=== PATIENT | male | born 1955 | race Asian ===

== ENCOUNTER 2021-03-15 04:13 | Day surgery (SDC) | payer OTHER ==
[2021-03-11 11:39] VITALS: BMI 31.1
[2021-03-15] MEDS ORDERED: MIDAZOLAM HCL 2 MG/2 ML SINGLE DOSE VIAL ONE (08:57)
[2021-03-15] MEDS ORDERED: KETOROLAC TROMETHAMINE 30 MG/1 ML VIAL ONE (09:05)
[2021-03-15] MEDS ORDERED: DEXAMETHASONE SOD PHOSPHATE 4 MG/1 ML VIAL ONE (09:05)
[2021-03-15 17:36] VITALS: TEMP 98.8
[2021-03-15 17:39] VITALS: BP 120/74; PULSE 71
== END 2021-03-15 09:46 | disposition home or self-care (01) ==
LOC: JASU-SURG 04:13
PROVIDERS: ATTEND Urology
PROC: 0TF4XZZ Fragmentation in Left Kidney Pelvis, External Approach (ICD-10-PCS; principal; 2021-03-15 09:30)
DX: N20.0 Calculus of kidney (principal)

== ENCOUNTER 2021-05-15 15:46 | Inpatient (IN) | payer OTHER ==
[2021-05-15 15:53] VITALS: BMI 31.1
[2021-05-15] MEDS: ALBUTEROL SO4 2.5/IPRATROPIUM 0.5 INH SOL 3 ML VIAL.NEB. NEB SCH ×4 (18:00→19:04)
[2021-05-15] MEDS ORDERED: DEXAMETHASONE SOD PHOSPHATE 20 MG/5 ML VIAL IVPB ONE (18:02)
[2021-05-15] MEDS ORDERED: DEXAMETHASONE SOD PHOSPHATE 10 MG/1 ML VIAL ONE (18:15)
[2021-05-15] MEDS ORDERED: ALBUTEROL SO4 2.5/IPRATROPIUM 0.5 INH SOL 3 ML VIAL.NEB. NEB ONE (18:15)
[2021-05-15 18:20] LABS: BASO % 1.1 % (0-2.0); HEMOGLOBIN 14.2 GM/dL (11.7-16.9); LYMPH % 35.7 % (8-40); MCH 27.6 pg (25.7-33.7); MCHC 33.8 g/dl (32.0-35.9); MEAN CELL VOLUME 81.6 fl (80-96); MEAN PLT VOLUME 8.1 fl (7.5-11.1); MONO % 7.1 % (3.8-10.2); NEUT % 52.1 % (42.8-82.8); PLATELET COUNT 229 10^3/uL (134-434); RBC 5.15 M/mm3 (4.00-5.60); WHITE BLOOD COUNT 8.4 K/mm3 (4.0-10.0)
[2021-05-15 18:39] LABS: ALBUMIN 3.8 g/dl (3.4-5.0); BLOOD UREA NITROGEN 20.9 mg/dL (7-18); CALCIUM 9.3 mg/dL (8.5-10.1)
[2021-05-15 18:42] LABS: CREATININE 1.3 mg/dL (0.55-1.3)
[2021-05-15 18:45] LABS: BILIRUBIN,TOTAL 0.4 mg/dL (0.2-1); TOT PROT 7.8 g/dl (6.4-8.2)
[2021-05-15] MEDS ORDERED: ASPIRIN 81 MG CHEWABLE TABLETS PO ONE (18:58)
[2021-05-15 19:26] LABS: N-TERMINAL BNP 30.5 pg/ml (5-125)
[2021-05-15] MEDS ORDERED: ASPIRIN 81 MG CHEWABLE TABLETS ONE (19:31)
[2021-05-15] MEDS ORDERED: ACETAMINOPHEN 325 MG TABLET (FP) PO PRN (20:54)
[2021-05-15] MEDS ORDERED: ALBUTEROL SO4 2.5/IPRATROPIUM 0.5 INH SOL 3 ML VIAL.NEB. NEB PRN (22:49)
[2021-05-16] MEDS ORDERED: ALBUTEROL SO4 HFA INHALER IH ONE (06:14)
[2021-05-16] MEDS: ALBUTEROL SO4 HFA INHALER IH PRN ×2 (06:14→12:25)
[2021-05-16 08:10] LABS: BASO % 0.2 % (0-2.0); HEMATOCRIT 43.3 % (35.4-49); HEMOGLOBIN 14.4 GM/dL (11.7-16.9); LYMPH % 18.6 % (8-40); MCH 27.1 pg (25.7-33.7); MCHC 33.1 g/dl (32.0-35.9); MEAN CELL VOLUME 81.8 fl (80-96); MEAN PLT VOLUME 8.1 fl (7.5-11.1); MONO % 2.4 % (3.8-10.2); NEUT % 78.8 % (42.8-82.8); PLATELET COUNT 250 10^3/uL (134-434); RDW 13.7 % (11.9-15.9); WHITE BLOOD COUNT 6.7 K/mm3 (4.0-10.0)
[2021-05-16 08:19] LABS: INR 0.97 (0.83-1.09); PROTHROMBIN TIME (PATIENT) 11.1 SEC (9.7-13.0)
[2021-05-16 08:30] LABS: CALCIUM 9.5 mg/dL (8.5-10.1); MAGNESIUM 2.2 mg/dL (1.8-2.4)
[2021-05-16 08:33] LABS: CREATININE 1.3 mg/dL (0.55-1.3); PHOSPHOROUS 2.7 mg/dL (2.5-4.9)
[2021-05-16 08:34] LABS: BILIRUBIN,TOTAL 0.4 mg/dL (0.2-1); TOT PROT 8.4 g/dl (6.4-8.2)
[2021-05-16 09:12] LABS: EPI CELLS 1 /uL (0-25.1); HYALINE CASTS 0 /uL (0-3.1); PH,URINE 5.5 (5.0-8.0); URINE APPEARANCE CLEAR; URINE BACTERIA 3 /uL (0-1359); URINE BILIRUBIN NEGATIVE (NEGATIVE); URINE COLOR YELLOW; URINE GLUCOSE (UA) 1+ (NEGATIVE); URINE KETONE NEGATIVE (NEGATIVE); URINE LEUK ESTERASE NEGATIVE (NEGATIVE); URINE NITRITE NEGATIVE (NEGATIVE); URINE PROTEIN 2+ (NEGATIVE); URINE RBC 4 /uL (0-23.9); URINE UROBILINOGEN 0.2 mg/dL (0.2-1.0); URINE WBC 1 /uL (0-25.8)
[2021-05-16] MEDS ORDERED: methylPREDNISolone NA SUCC 40 MG/1 ML VIAL ONE ×2 (09:17→18:02)
[2021-05-16] MEDS ORDERED: amLODIPine BESYLATE 10 MG TABLET (FP) ONE (09:17)
[2021-05-16] MEDS ORDERED: PANTOPRAZOLE 40 MG TABLET ONE (09:17)
[2021-05-16] MEDS: PANTOPRAZOLE 40 MG TABLET PO SCH (09:36)
[2021-05-16] MEDS: amLODIPine BESYLATE 10 MG TABLET (FP) PO SCH (09:36)
[2021-05-16] MEDS ORDERED: PANTOPRAZOLE 20 MG TABLET PO SCH (10:00)
[2021-05-16] MEDS ORDERED: LOSARTAN POTASSIUM 50 MG TABLET PO SCH (10:00)
[2021-05-16] MEDS ORDERED: amLODIPine BESYLATE 10 MG TABLET (FP) PO SCH (10:00)
[2021-05-16] MEDS ORDERED: methylPREDNISolone NA SUCC 40 MG/1 ML VIAL IVPUSH SCH (10:00)
[2021-05-16] MEDS ORDERED: ENOXAPARIN NA (PORCINE) 80 MG/0.8 ML DISP.SYRIN SQ ONE (10:00)
[2021-05-16] MEDS ORDERED: ENOXAPARIN NA (PORCINE) 40 MG/0.4 ML DISP.SYRIN SQ SCH (10:00)
[2021-05-16] MEDS ORDERED: LACTATED RINGERS SOLUTION 1,000 ML/1,000 ML INFUS.BAG IV SCH (12:30)
[2021-05-16] MEDS: ALBUTEROL SO4 HFA INHALER IH SCH ×2 (13:18→18:14)
[2021-05-16 16:07] LABS: SARS-CoV-2 NAA Not Detected (Not Detected)
[2021-05-16] MEDS: methylPREDNISolone NA SUCC 40 MG/1 ML VIAL IVPUSH SCH (18:13)
[2021-05-16] MEDS: MONTELUKAST NA 10 MG TABLET PO SCH (21:27)
[2021-05-16] MEDS ORDERED: MONTELUKAST NA 5 MG TAB.CHEW PO SCH ×2 (22:00)
[2021-05-17] MEDS: ALBUTEROL SO4 HFA INHALER IH SCH ×4 (00:26→17:17)
[2021-05-17] MEDS: methylPREDNISolone NA SUCC 40 MG/1 ML VIAL IVPUSH SCH ×3 (01:17→17:16)
[2021-05-17] MEDS: ENOXAPARIN NA (PORCINE) 40 MG/0.4 ML DISP.SYRIN SQ SCH (09:28)
[2021-05-17] MEDS: LOSARTAN POTASSIUM 50 MG TABLET PO SCH (09:28)
[2021-05-17] MEDS: PANTOPRAZOLE 40 MG TABLET PO SCH (09:28)
[2021-05-17] MEDS: amLODIPine BESYLATE 10 MG TABLET (FP) PO SCH (09:28)
[2021-05-17] MEDS ORDERED: SODIUM CHLORIDE NASAL SPRAY 44 ML BOTTLE NS PRN (11:51)
[2021-05-17] MEDS: INSULIN SLIDING SCALE (NOVOLOG) 1 VIAL SQ SCH ×2 (17:15→21:45)
[2021-05-17] MEDS: TAMSULOSIN HCL 0.4 MG CAP PO SCH (17:17)
[2021-05-17] MEDS: MONTELUKAST NA 10 MG TABLET PO SCH (21:45)
[2021-05-17] MEDS: ATORVASTATIN CA 10 MG TABLET (FP) PO SCH (21:45)
[2021-05-18] MEDS: ALBUTEROL SO4 HFA INHALER IH SCH ×3 (01:00→11:26)
[2021-05-18] MEDS: methylPREDNISolone NA SUCC 40 MG/1 ML VIAL IVPUSH SCH ×3 (02:37→18:13)
[2021-05-18] MEDS: INSULIN SLIDING SCALE (NOVOLOG) 1 VIAL SQ SCH ×4 (06:01→21:37)
[2021-05-18 07:26] LABS: BASO % 0.1 % (0-2.0); HEMATOCRIT 40.5 % (35.4-49); HEMOGLOBIN 13.3 GM/dL (11.7-16.9); LYMPH % 7.8 % (8-40); MCH 26.8 pg (25.7-33.7); MCHC 32.8 g/dl (32.0-35.9); MEAN CELL VOLUME 81.6 fl (80-96); MEAN PLT VOLUME 8.7 fl (7.5-11.1); MONO % 2.2 % (3.8-10.2); NEUT % 89.9 % (42.8-82.8); PLATELET COUNT 248 10^3/uL (134-434); RBC 4.96 M/mm3 (4.00-5.60); RDW 13.9 % (11.9-15.9); WHITE BLOOD COUNT 13.8 K/mm3 (4.0-10.0)
[2021-05-18 07:42] LABS: BLOOD UREA NITROGEN 25.7 mg/dL (7-18); CALCIUM 8.5 mg/dL (8.5-10.1); MAGNESIUM 2.2 mg/dL (1.8-2.4)
[2021-05-18 07:45] LABS: PHOSPHOROUS 2.5 mg/dL (2.5-4.9)
[2021-05-18 07:46] LABS: CREATININE 1.1 mg/dL (0.55-1.3)
[2021-05-18] MEDS: amLODIPine BESYLATE 10 MG TABLET (FP) PO SCH (09:57)
[2021-05-18] MEDS: LOSARTAN POTASSIUM 50 MG TABLET PO SCH (09:57)
[2021-05-18] MEDS: ENOXAPARIN NA (PORCINE) 40 MG/0.4 ML DISP.SYRIN SQ SCH (09:57)
[2021-05-18] MEDS: TAMSULOSIN HCL 0.4 MG CAP PO SCH (09:57)
[2021-05-18] MEDS: ASPIRIN 81 MG CHEWABLE TABLETS PO SCH (09:58)
[2021-05-18] MEDS: PANTOPRAZOLE 40 MG TABLET PO SCH (09:59)
[2021-05-18] MEDS ORDERED: FENOFIBRATE 54 MG PO SCH (10:00)
[2021-05-18] MEDS: FENOFIBRIC ACID 45 MG CAP PO SCH (10:42)
[2021-05-18] MEDS ORDERED: ALBUTEROL SO4 0.083% IH SOL 2.5 MG/3 ML VIAL.NEB. NEB PRN (13:44)
[2021-05-18] MEDS: FLUTICASONE/UMECLIDIN/VILANTER(200-62.5-25 TRELEGY ELLIPTA) INAHLER IH SCH (18:15)
[2021-05-18] MEDS: MONTELUKAST NA 10 MG TABLET PO SCH (21:37)
[2021-05-18] MEDS: ATORVASTATIN CA 10 MG TABLET (FP) PO SCH (21:37)
[2021-05-18] MEDS ORDERED: BUDESONIDE/FORMETEROL FUMARATE 80/4.5 mcg INHALER IH SCH (22:00)
[2021-05-19] MEDS: methylPREDNISolone NA SUCC 40 MG/1 ML VIAL IVPUSH SCH ×2 (01:35→09:37)
[2021-05-19] MEDS: INSULIN SLIDING SCALE (NOVOLOG) 1 VIAL SQ SCH ×2 (06:05→11:21)
[2021-05-19 07:00] LABS: HEMATOCRIT 40.1 % (35.4-49); HEMOGLOBIN 13.7 GM/dL (11.7-16.9); MCH 27.5 pg (25.7-33.7); MCHC 34.1 g/dl (32.0-35.9); MEAN CELL VOLUME 80.7 fl (80-96); PLATELET COUNT 239 10^3/uL (134-434); RBC 4.97 M/mm3 (4.00-5.60); RDW 13.6 % (11.9-15.9); WHITE BLOOD COUNT 11.3 K/mm3 (4.0-10.0)
[2021-05-19] MEDS ORDERED: GLIMEPIRIDE 4 MG TABLET PO SCH (07:00)
[2021-05-19 07:12] LABS: CALCIUM 8.7 mg/dL (8.5-10.1)
[2021-05-19 07:13] LABS: BLOOD UREA NITROGEN 23.9 mg/dL (7-18); MAGNESIUM 2.3 mg/dL (1.8-2.4)
[2021-05-19 07:16] LABS: CREATININE 1.3 mg/dL (0.55-1.3)
[2021-05-19 07:19] LABS: PHOSPHOROUS 3.1 mg/dL (2.5-4.9)
[2021-05-19 09:01] VITALS: TEMP 98.8
[2021-05-19] MEDS: PANTOPRAZOLE 40 MG TABLET PO SCH (09:37)
[2021-05-19] MEDS: ASPIRIN 81 MG CHEWABLE TABLETS PO SCH ×2 (09:37→09:46)
[2021-05-19] MEDS: LOSARTAN POTASSIUM 50 MG TABLET PO SCH (09:37)
[2021-05-19] MEDS: amLODIPine BESYLATE 10 MG TABLET (FP) PO SCH (09:37)
[2021-05-19] MEDS: ENOXAPARIN NA (PORCINE) 40 MG/0.4 ML DISP.SYRIN SQ SCH (09:37)
[2021-05-19] MEDS: TAMSULOSIN HCL 0.4 MG CAP PO SCH (09:37)
[2021-05-19] MEDS: FENOFIBRIC ACID 45 MG CAP PO SCH (09:37)
[2021-05-19] MEDS: FLUTICASONE/UMECLIDIN/VILANTER(200-62.5-25 TRELEGY ELLIPTA) INAHLER IH SCH (09:38)
[2021-05-19] MEDS ORDERED: metFORMIN HCL 500 MG TABLET (FP) PO SCH (10:00)
[2021-05-19 12:13] LABS: PLATELET ESTIMATE NORMAL
[2021-05-19 14:55] VITALS: BP 137/62; PULSE 104
[2021-05-19] MEDS ORDERED: methylPREDNISolone NA SUCC 40 MG/1 ML VIAL IVPUSH SCH (22:00)
== END 2021-05-19 15:39 | disposition home or self-care (01) | DRG 191 ==
LOC: JER 15:46 → JERBED 18:48 → OBSVTOIN 20:54 → J4W 05-16 19:16
PROVIDERS: ADMIT Internal Medicine; ATTEND Internal Medicine
DX: J44.1 Chronic obstructive pulmonary disease with (acute) exacerbation (principal); J45.901 Unspecified asthma with (acute) exacerbation; I10 Essential (primary) hypertension; E78.5 Hyperlipidemia, unspecified; I45.10 Unspecified right bundle-branch block; E66.9 Obesity, unspecified; Z68.31 Body mass index [BMI] 31.0-31.9, adult; N40.0 Benign prostatic hyperplasia without lower urinary tract symptoms; E11.65 Type 2 diabetes mellitus with hyperglycemia; R07.89 Other chest pain; Z87.891 Personal history of nicotine dependence
CPT/HCPCS: 36415; 71045-TC-FY; 80048; 80053; 80061; 81003; 82962; 83036; 83735; 83880; 84100; 84436; 84443; 84484; 85025; 85379; 85610; 87804; 93005; 93010; 93306-TC; 93970-TC; 94010; 99285-25; C9803-CS; G0378; U0003; U0005

== ENCOUNTER 2021-05-24 04:23 | Day surgery (SDC) | payer OTHER ==
[2021-05-20 09:22] VITALS: BMI 31.1
[2021-05-24] MEDS ORDERED: ONDANSETRON 4 MG/2 ML VIAL ONE ×2 (08:10→10:05)
[2021-05-24] MEDS ORDERED: MIDAZOLAM HCL 2 MG/2 ML SINGLE DOSE VIAL ONE (09:36)
[2021-05-24 13:03] VITALS: BP 128/81; PULSE 68; TEMP 98
== END 2021-05-24 11:10 | disposition home or self-care (01) ==
LOC: JASU-SURG 04:23
PROVIDERS: ATTEND Urology
PROC: 0TF4XZZ Fragmentation in Left Kidney Pelvis, External Approach (ICD-10-PCS; principal; 2021-05-24 09:30)
DX: N20.0 Calculus of kidney (principal)
CPT/HCPCS: 82962

== ENCOUNTER 2021-06-08 11:33 | Inpatient (IN) | payer OTHER ==
[2021-06-08 13:03] LABS: BASO % 0.7 % (0-2.0); EOS % 2.5 % (0-4.5); HEMATOCRIT 39.7 % (35.4-49); HEMOGLOBIN 13.5 GM/dL (11.7-16.9); LYMPH % 24.5 % (8-40); MCH 27.8 pg (25.7-33.7); MEAN CELL VOLUME 81.8 fl (80-96); MEAN PLT VOLUME 8.2 fl (7.5-11.1); MONO % 6.1 % (3.8-10.2); NEUT % 66.2 % (42.8-82.8); PLATELET COUNT 193 10^3/uL (134-434); RBC 4.86 M/mm3 (4.00-5.60); RDW 14.3 % (11.9-15.9); WHITE BLOOD COUNT 9.5 K/mm3 (4.0-10.0)
[2021-06-08] MEDS ORDERED: SODIUM CHLORIDE 0.9% 500 ML INFUS.BAG IV ONE (13:04)
[2021-06-08 13:09] LABS: ACTIVATED PTT 28.4 SECONDS (25.2-36.5)
[2021-06-08 13:21] LABS: INR 0.97 (0.83-1.09); PROTHROMBIN TIME (PATIENT) 11.2 SEC (9.7-13.0)
[2021-06-08 13:24] LABS: ALBUMIN 3.9 g/dl (3.4-5.0); BLOOD UREA NITROGEN 22.4 mg/dL (7-18); CALCIUM 9.3 mg/dL (8.5-10.1); MAGNESIUM 2.1 mg/dL (1.8-2.4)
[2021-06-08 13:27] LABS: CREATININE 1.4 mg/dL (0.55-1.3)
[2021-06-08 13:29] LABS: BILIRUBIN,TOTAL 0.4 mg/dL (0.2-1); TOT PROT 7.3 g/dl (6.4-8.2)
[2021-06-08] MEDS ORDERED: APIXABAN 5 MG TABLET PO ONE (16:17)
[2021-06-08] MEDS ORDERED: APIXABAN 5 MG TABLET ONE (16:22)
[2021-06-08] MEDS: METOPROLOL TARTRATE 50 MG TABLET (FP) PO SCH ×2 (21:01→23:30)
[2021-06-08] MEDS ORDERED: APIXABAN 5 MG TABLET PO SCH (22:00)
[2021-06-09] MEDS ORDERED: SODIUM CHLORIDE 1,000 ML IV SCH (00:30)
[2021-06-09 01:08] VITALS: BMI 32.3
[2021-06-09] MEDS ORDERED: ACETAMINOPHEN 325 MG TABLET (FP) PO PRN (02:26)
[2021-06-09] MEDS: INSULIN SLIDING SCALE (NOVOLOG) 1 VIAL SQ SCH ×2 (07:31→12:08)
[2021-06-09 07:35] LABS: BASO % 0.9 % (0-2.0); HEMATOCRIT 37.7 % (35.4-49); HEMOGLOBIN 12.8 GM/dL (11.7-16.9); LYMPH % 28.4 % (8-40); MCH 27.8 pg (25.7-33.7); MCHC 33.9 g/dl (32.0-35.9); MEAN CELL VOLUME 82.1 fl (80-96); MEAN PLT VOLUME 8.3 fl (7.5-11.1); NEUT % 58.7 % (42.8-82.8); PLATELET COUNT 205 10^3/uL (134-434); RBC 4.59 M/mm3 (4.00-5.60); RDW 14.1 % (11.9-15.9); WHITE BLOOD COUNT 8.7 K/mm3 (4.0-10.0)
[2021-06-09 07:51] LABS: ALBUMIN 3.2 g/dl (3.4-5.0); BLOOD UREA NITROGEN 29.8 mg/dL (7-18); CALCIUM 8.8 mg/dL (8.5-10.1)
[2021-06-09 07:52] LABS: MAGNESIUM 2.1 mg/dL (1.8-2.4)
[2021-06-09 07:54] LABS: CREATININE 1.4 mg/dL (0.55-1.3); PHOSPHOROUS 3.5 mg/dL (2.5-4.9)
[2021-06-09 07:56] LABS: BILIRUBIN,TOTAL 0.4 mg/dL (0.2-1)
[2021-06-09] MEDS: METOPROLOL TARTRATE 50 MG TABLET (FP) PO SCH (09:54)
[2021-06-09] MEDS ORDERED: APIXABAN 5 MG TABLET PO SCH (10:00)
[2021-06-09 13:28] VITALS: BP 104/54; PULSE 80; TEMP 97.3
== END 2021-06-09 18:21 | disposition home or self-care (01) | DRG 176 ==
LOC: JER 11:33 → JERBED 15:06 → J4W 22:57
PROVIDERS: ADMIT Internal Medicine; ATTEND Internal Medicine
DX: I26.99 Other pulmonary embolism without acute cor pulmonale (principal); N17.9 Acute kidney failure, unspecified; E11.9 Type 2 diabetes mellitus without complications; E78.5 Hyperlipidemia, unspecified; I10 Essential (primary) hypertension; J45.909 Unspecified asthma, uncomplicated; I45.10 Unspecified right bundle-branch block; I48.0 Paroxysmal atrial fibrillation
CPT/HCPCS: 36415; 71046-TC-FY; 71275-TC; 78452-TC; 80053; 82962; 83735; 84100; 84484; 85025; 85379; 85610; 85730; 93005; 93010; 93017; 93306-TC; 99285-25; A9502; C1887; C9803-CS; Q9967; U0003; U0005

== ENCOUNTER 2021-10-15 04:13 | Day surgery (SDC) | payer OTHER ==
[2021-08-19 14:07] VITALS: BMI 31.6
[2021-10-15] MEDS ORDERED: LIDOCAINE HCL/PF 1% SDV 5ML VIAL ONE (07:09)
[2021-10-15] MEDS ORDERED: LIDOCAINE HCL 2% (20ML MULTI-DOSE VIAL) ONE (08:21)
[2021-10-15] MEDS ORDERED: LIDOCAINE HCL 1% PRESERVATIVE FREE - 30ML VIAL IJ ONE ×2 (08:44)
[2021-10-15 09:42] VITALS: BP 152/89; PULSE 89; RESP 20; TEMP 98.9
== END 2021-10-15 10:16 | disposition home or self-care (01) ==
LOC: JASU-SURG 04:13
PROVIDERS: ATTEND Pain Medicine Pain Medicine
PROC: 01HY3MZ Insertion of Neurostimulator Lead into Peripheral Nerve, Percutaneous Approach (ICD-10-PCS; principal; 2021-10-15 08:00)
DX: G89.4 Chronic pain syndrome (principal); M25.511 Pain in right shoulder
CPT/HCPCS: 64555; C1897; 82962; C1778

== ENCOUNTER 2022-03-04 03:58 | Day surgery (SDC) | payer OTHER ==
[2022-03-02 12:14] VITALS: BMI 29.7
[~2022-03-04 03:58] MED LIST: LIDOCAINE 1% P/F 10 MG/ML VIAL INF ONE
[2022-03-04 07:02] VITALS: RESP 20
[2022-03-04] MEDS ORDERED: LIDOCAINE HCL/PF 1% SDV 5ML VIAL ONE (07:15)
[2022-03-04] MEDS ORDERED: LIDOCAINE 1% P/F 10 MG/ML VIAL INF ONE (08:14)
[2022-03-04 09:21] VITALS: BP 120/70; PULSE 72; TEMP 98
== END 2022-03-04 09:15 | disposition home or self-care (01) ==
LOC: JASU-SURG 03:58
PROVIDERS: ATTEND Pain Medicine Pain Medicine
PROC: 01HY3MZ Insertion of Neurostimulator Lead into Peripheral Nerve, Percutaneous Approach (ICD-10-PCS; principal; 2022-03-04 08:00)
DX: G89.4 Chronic pain syndrome (principal); M25.511 Pain in right shoulder
CPT/HCPCS: 64555; C1778

== ENCOUNTER 2022-03-29 04:20 | Day surgery (SDC) | payer OTHER ==
[2022-03-23 17:06] VITALS: BMI 29.7
[2022-03-29] MEDS ORDERED: DEXAMETHASONE SOD PHOSPHATE 10 MG/1 ML VIAL ONE (07:26)
[2022-03-29] MEDS ORDERED: LIDOCAINE HCL/PF 1% SDV 5ML VIAL ONE (07:26)
[2022-03-29] MEDS ORDERED: BUPIVACAINE HCL/PF 0.75% 10 ML VIAL ONE (07:26)
[2022-03-29 08:43] VITALS: RESP 18
[2022-03-29] MEDS ORDERED: LIDOCAINE HCL 1% PRESERVATIVE FREE - 30ML VIAL IJ ONE (09:53)
[2022-03-29] MEDS ORDERED: DEXAMETHASONE SOD PHOSPHATE 10 MG/1 ML VIAL IVPUSH ONE (09:54)
[2022-03-29] MEDS ORDERED: BUPIVACAINE HCL/PF 0.75% 10 ML VIAL NR ONE (09:55)
[2022-03-29 10:54] VITALS: BP 129/77; PULSE 81; TEMP 98.2
== END 2022-03-29 10:36 | disposition home or self-care (01) ==
LOC: JASU-SURG 04:20
PROVIDERS: ATTEND Pain Medicine Pain Medicine
PROC: 005Y3ZZ Destruction of Lumbar Spinal Cord, Percutaneous Approach (ICD-10-PCS; principal; 2022-03-29 10:00)
DX: M47.16 Other spondylosis with myelopathy, lumbar region (principal)
CPT/HCPCS: 76000-TC-FY; J1100

== ENCOUNTER 2022-04-26 12:13 | Observation (INO) | payer OTHER ==
[2022-04-26 13:47] LABS: BASO % 0.6 % (0-2.0); EOS % 2.9 % (0-4.5); HEMATOCRIT 41.6 % (35.4-49); HEMOGLOBIN 13.9 GM/dL (11.7-16.9); LYMPH % 22.7 % (8-40); MCH 27.2 pg (25.7-33.7); MCHC 33.3 g/dl (32.0-35.9); MEAN CELL VOLUME 81.7 fl (80-96); MEAN PLT VOLUME 8.7 fl (7.5-11.1); MONO % 7.3 % (3.8-10.2); NEUT % 66.5 % (42.8-82.8); PLATELET COUNT 347 10^3/uL (134-434); RDW 12.7 % (11.9-15.9); WHITE BLOOD COUNT 11.8 K/mm3 (4.0-10.0)
[2022-04-26 13:54] LABS: INR 1.3 (0.83-1.09)
[2022-04-26 13:57] LABS: ACTIVATED PTT 42.3 SECONDS (25.2-36.5)
[2022-04-26 14:07] LABS: CALCIUM 9.7 mg/dL (8.5-10.1)
[2022-04-26 14:08] LABS: BLOOD UREA NITROGEN 15.2 mg/dL (7-18)
[2022-04-26 14:11] LABS: CREATININE 1.4 mg/dL (0.55-1.3)
[2022-04-26 14:12] LABS: CHOLESTEROL 174 mg/dL (50-200)
[2022-04-26 14:13] LABS: BILIRUBIN,TOTAL 0.5 mg/dL (0.2-1); TOT PROT 8.4 g/dl (6.4-8.2)
[2022-04-26 14:14] LABS: LDL CHOLESTEROL (ONLY SJRH) 108 mg/dL (5-100)
[2022-04-26 14:15] LABS: HDL CHOLESTEROL 29 mg/dL (40-60)
[2022-04-26] MEDS ORDERED: ASPIRIN 81 MG CHEWABLE TABLETS PO ONE (14:27)
[2022-04-26] MEDS ORDERED: ASPIRIN 81 MG CHEWABLE TABLETS ONE (14:45)
[2022-04-26 18:35] LABS: PH,URINE 6.5 (5.0-8.0); URINE APPEARANCE CLEAR; URINE BILIRUBIN NEGATIVE (NEGATIVE); URINE COLOR YELLOW; URINE GLUCOSE (UA) NEGATIVE (NEGATIVE); URINE KETONE NEGATIVE (NEGATIVE); URINE LEUK ESTERASE NEGATIVE (NEGATIVE); URINE NITRITE NEGATIVE (NEGATIVE); URINE PROTEIN NEGATIVE (NEGATIVE); URINE UROBILINOGEN 0.2 mg/dL (0.2-1.0)
[2022-04-26 21:32] VITALS: BMI 30.7
[2022-04-26] MEDS: APIXABAN 5 MG TABLET PO SCH (21:51)
[2022-04-26] MEDS: ATORVASTATIN CA 80 MG TABLET (FP) PO SCH (21:51)
[2022-04-26] MEDS ORDERED: FLUTICASONE/UMECLIDIN/VILANTER(200-62.5-25 TRELEGY ELLIPTA) INAHLER IH SCH (22:00)
[2022-04-27] MEDS: ASPIRIN COATED 81 MG TABLET.EC PO SCH (09:58)
[2022-04-27] MEDS: TIOTROPIUM BROMIDE 2.5 MCG (SPIRIVA) RESPIMAT INHALER IH SCH (09:58)
[2022-04-27] MEDS: CLOPIDOGREL BISULFATE 75 MG TABLET (FP) PO SCH (09:58)
[2022-04-27] MEDS: PANTOPRAZOLE 40 MG TABLET PO SCH (09:58)
[2022-04-27] MEDS: SOLIFENACIN SUCCINATE 5 MG TAB PO SCH (09:58)
[2022-04-27] MEDS: APIXABAN 5 MG TABLET PO SCH ×2 (09:58→21:28)
[2022-04-27 10:33] LABS: BASO % 0.6 % (0-2.0); EOS % 5.4 % (0-4.5); HEMATOCRIT 40.9 % (35.4-49); HEMOGLOBIN 14.1 GM/dL (11.7-16.9); LYMPH % 23.3 % (8-40); MCH 28.1 pg (25.7-33.7); MCHC 34.5 g/dl (32.0-35.9); MEAN CELL VOLUME 81.5 fl (80-96); MEAN PLT VOLUME 8.3 fl (7.5-11.1); MONO % 7.4 % (3.8-10.2); NEUT % 63.3 % (42.8-82.8); PLATELET COUNT 314 10^3/uL (134-434); RBC 5.01 M/mm3 (4.00-5.60); RDW 12.7 % (11.9-15.9)
[2022-04-27 10:47] LABS: CALCIUM 9.8 mg/dL (8.5-10.1); CREATININE 1.4 mg/dL (0.55-1.3); POTASSIUM 4.8 mmol/L (3.5-5.1)
[2022-04-27 10:51] LABS: CHOLESTEROL 160 mg/dL (50-200); HDL CHOLESTEROL 29 mg/dL (40-60); LDL CHOLESTEROL (ONLY SJRH) 95 mg/dL (5-100)
[2022-04-27] MEDS ORDERED: SODIUM CHLORIDE 0.45% 1,000 ML IV SCH (19:15)
[2022-04-27] MEDS: ATORVASTATIN CA 80 MG TABLET (FP) PO SCH (21:28)
[2022-04-27] MEDS: INSULIN SLIDING SCALE (NOVOLOG) 1 VIAL SQ SCH (21:52)
[2022-04-28] MEDS: INSULIN SLIDING SCALE (NOVOLOG) 1 VIAL SQ SCH ×4 (06:35→21:18)
[2022-04-28 08:14] LABS: HEMATOCRIT 36.6 % (35.4-49); HEMOGLOBIN 12.5 GM/dL (11.7-16.9); MCH 27.5 pg (25.7-33.7); MEAN CELL VOLUME 80.8 fl (80-96); MEAN PLT VOLUME 8.7 fl (7.5-11.1); PLATELET COUNT 280 10^3/uL (134-434); RBC 4.53 M/mm3 (4.00-5.60); RDW 12.7 % (11.9-15.9); WHITE BLOOD COUNT 10.5 K/mm3 (4.0-10.0)
[2022-04-28] MEDS ORDERED: SODIUM CHLORIDE 250 ML IV STA (08:19)
[2022-04-28 08:29] LABS: POTASSIUM 4.3 mmol/L (3.5-5.1)
[2022-04-28 08:30] LABS: CALCIUM 9.1 mg/dL (8.5-10.1)
[2022-04-28] MEDS ORDERED: SODIUM CHLORIDE 1,000 ML IV SCH (08:30)
[2022-04-28 08:31] LABS: BLOOD UREA NITROGEN 18.1 mg/dL (7-18); MAGNESIUM 2.2 mg/dL (1.8-2.4)
[2022-04-28 08:34] LABS: PHOSPHOROUS 3.9 mg/dL (2.5-4.9)
[2022-04-28 08:35] LABS: CREATININE 1.3 mg/dL (0.55-1.3)
[2022-04-28] MEDS: APIXABAN 5 MG TABLET PO SCH ×2 (10:15→21:18)
[2022-04-28] MEDS: CLOPIDOGREL BISULFATE 75 MG TABLET (FP) PO SCH (10:15)
[2022-04-28] MEDS: ASPIRIN COATED 81 MG TABLET.EC PO SCH (10:15)
[2022-04-28] MEDS: SOLIFENACIN SUCCINATE 5 MG TAB PO SCH (10:16)
[2022-04-28] MEDS: TIOTROPIUM BROMIDE 2.5 MCG (SPIRIVA) RESPIMAT INHALER IH SCH (10:16)
[2022-04-28] MEDS: PANTOPRAZOLE 40 MG TABLET PO SCH (10:16)
[2022-04-28] MEDS: ATORVASTATIN CA 80 MG TABLET (FP) PO SCH (21:18)
[2022-04-29 04:24] VITALS: RESP 18
[2022-04-29] MEDS: INSULIN SLIDING SCALE (NOVOLOG) 1 VIAL SQ SCH ×2 (06:19→12:32)
[2022-04-29 06:50] VITALS: TEMP 99
[2022-04-29 07:58] LABS: HEMATOCRIT 36.7 % (35.4-49); HEMOGLOBIN 12.8 GM/dL (11.7-16.9); MCHC 34.8 g/dl (32.0-35.9); MEAN CELL VOLUME 80.4 fl (80-96); PLATELET COUNT 289 10^3/uL (134-434); RBC 4.56 M/mm3 (4.00-5.60); RDW 12.5 % (11.9-15.9); WHITE BLOOD COUNT 9.7 K/mm3 (4.0-10.0)
[2022-04-29 08:10] LABS: POTASSIUM 4.2 mmol/L (3.5-5.1)
[2022-04-29 08:16] LABS: CALCIUM 9.4 mg/dL (8.5-10.1)
[2022-04-29 08:19] LABS: CREATININE 1.3 mg/dL (0.55-1.3); PHOSPHOROUS 3.9 mg/dL (2.5-4.9)
[2022-04-29] MEDS: PANTOPRAZOLE 40 MG TABLET PO SCH (09:56)
[2022-04-29] MEDS: SOLIFENACIN SUCCINATE 5 MG TAB PO SCH (09:56)
[2022-04-29] MEDS: ASPIRIN COATED 81 MG TABLET.EC PO SCH (09:56)
[2022-04-29] MEDS: CLOPIDOGREL BISULFATE 75 MG TABLET (FP) PO SCH (09:56)
[2022-04-29] MEDS: TIOTROPIUM BROMIDE 2.5 MCG (SPIRIVA) RESPIMAT INHALER IH SCH (09:56)
[2022-04-29] MEDS: APIXABAN 5 MG TABLET PO SCH (09:56)
[2022-04-29] MEDS ORDERED: SODIUM CHLORIDE 1,000 ML IV SCH (10:00)
[2022-04-29 13:36] VITALS: BP 146/84; PULSE 88
== END 2022-04-29 16:25 | disposition home or self-care (01) ==
LOC: JER 12:13 → INTOOBSV 13:04 → JERBED 13:04 → UNDOADMOB 13:04 → JERBED 15:28 → J4W 21:19
PROVIDERS: ADMIT Internal Medicine; ATTEND Internal Medicine
PROC: 3E0337Z Introduction of Electrolytic and Water Balance Substance into Peripheral Vein, Percutaneous Approach (ICD-10-PCS; principal; 2022-04-26)
DX: I25.10 Atherosclerotic heart disease of native coronary artery without angina pectoris (principal); I11.9 Hypertensive heart disease without heart failure; I48.91 Unspecified atrial fibrillation; I25.2 Old myocardial infarction; J45.909 Unspecified asthma, uncomplicated; E78.5 Hyperlipidemia, unspecified; Z95.5 Presence of coronary angioplasty implant and graft; Z88.8 Allergy status to other drugs, medicaments and biological substances
CPT/HCPCS: 0241U-QW; 36415; 70450-TC; 70551-TC; 71045-TC-FY; 80048; 80053; 80061; 81003; 82550; 82553; 82607; 82962; 83036; 83735; 84100; 84443; 84484; 85025; 85027; 85610; 85730; 86850; 86900; 86901; 93005; 93010; 93306-TC; 93880-TC; 96360; 96361; 97116-GP; 97162-GP; 99285-25; G0378

== ENCOUNTER 2022-07-14 09:04 | Observation (INO) | payer OTHER ==
[2022-07-14 09:12] VITALS: BMI 28.1
[2022-07-14] MEDS ORDERED: OXYMETAZOLINE 0.05% NASAL SOLUTION 15 ML BOTTLE NS ONE (09:39)
[2022-07-14 10:34] LABS: INR 1.48 (0.83-1.09); PROTHROMBIN TIME (PATIENT) 17.1 SEC (9.7-13.0)
[2022-07-14 10:36] LABS: BASO % 0.2 % (0-2.0); HEMATOCRIT 39.2 % (35.4-49); HEMOGLOBIN 12.8 GM/dL (11.7-16.9); LYMPH % 16.7 % (8-40); MCH 26.1 pg (25.7-33.7); MCHC 32.6 g/dl (32.0-35.9); MEAN CELL VOLUME 79.9 fl (80-96); MEAN PLT VOLUME 8.8 fl (7.5-11.1); NEUT % 77.1 % (42.8-82.8); PLATELET COUNT 236 10^3/uL (134-434); RBC 4.91 M/mm3 (4.00-5.60); WHITE BLOOD COUNT 10.7 K/mm3 (4.0-10.0)
[2022-07-14 10:37] LABS: ACTIVATED PTT 38.6 SECONDS (25.2-36.5)
[2022-07-14 10:49] LABS: POTASSIUM 4.2 mmol/L (3.5-5.1)
[2022-07-14 10:51] LABS: CALCIUM 10.6 mg/dL (8.5-10.1)
[2022-07-14 10:52] LABS: BLOOD UREA NITROGEN 13.8 mg/dL (7-18); MAGNESIUM 1.8 mg/dL (1.8-2.4)
[2022-07-14 10:55] LABS: CREATININE 1.3 mg/dL (0.55-1.3)
[2022-07-14 10:56] LABS: BILIRUBIN,TOTAL 0.5 mg/dL (0.2-1); TOT PROT 7.5 g/dl (6.4-8.2)
[2022-07-14] MEDS ORDERED: LIDOCAINE HCL 1%, 10 MG/ML (50 mL VIAL) SQ ONE (11:53)
[2022-07-14] MEDS ORDERED: TRANEXAMIC ACID 1000 MG/10 ML VIAL IVPUSH ONE (11:54)
[2022-07-14] MEDS ORDERED: LIDOCAINE HCL/PF 1% SDV 5ML VIAL ONE ×2 (12:03)
[2022-07-14] MEDS ORDERED: TRANEXAMIC ACID 1000 MG/10 ML VIAL ONE (12:03)
[2022-07-14] MEDS ORDERED: SODIUM CHLORIDE 0.9% 500 ML INFUS.BAG IV ONE (13:11)
[2022-07-14 16:59] LABS: CHOLESTEROL 122 mg/dL (50-200)
[2022-07-14 17:02] LABS: LDL CHOLESTEROL (ONLY SJRH) 61 mg/dL (5-100)
[2022-07-14 17:03] LABS: HDL CHOLESTEROL 32 mg/dL (40-60)
[2022-07-14] MEDS: metFORMIN HCL 500 MG TABLET (FP) PO SCH (18:49)
[2022-07-14] MEDS: ATORVASTATIN CA 80 MG TABLET (FP) PO SCH (21:49)
[2022-07-15] MEDS: metFORMIN HCL 500 MG TABLET (FP) PO SCH ×2 (06:48→16:49)
[2022-07-15 08:00] LABS: BASO % 0.7 % (0-2.0); EOS % 2.8 % (0-4.5); HEMATOCRIT 37.8 % (35.4-49); HEMOGLOBIN 12.2 GM/dL (11.7-16.9); LYMPH % 36.8 % (8-40); MCH 26.6 pg (25.7-33.7); MCHC 32.3 g/dl (32.0-35.9); MEAN CELL VOLUME 82.2 fl (80-96); MEAN PLT VOLUME 9.7 fl (7.5-11.1); MONO % 7.5 % (3.8-10.2); NEUT % 52.2 % (42.8-82.8); PLATELET COUNT 227 10^3/uL (134-434); RDW 15.4 % (11.9-15.9); WHITE BLOOD COUNT 8.7 K/mm3 (4.0-10.0)
[2022-07-15 08:15] LABS: POTASSIUM 4.5 mmol/L (3.5-5.1)
[2022-07-15 08:19] LABS: ALBUMIN 3.6 g/dl (3.4-5.0); CALCIUM 9.1 mg/dL (8.5-10.1); MAGNESIUM 1.7 mg/dL (1.8-2.4)
[2022-07-15 08:22] LABS: CREATININE 1.2 mg/dL (0.55-1.3)
[2022-07-15 08:23] LABS: BILIRUBIN,TOTAL 0.8 mg/dL (0.2-1); TOT PROT 6.8 g/dl (6.4-8.2)
[2022-07-15] MEDS: APIXABAN 5 MG TABLET PO SCH ×2 (09:27→20:59)
[2022-07-15] MEDS: amLODIPine BESYLATE 5 MG TABLET (FP) PO SCH (09:27)
[2022-07-15] MEDS: PANTOPRAZOLE 40 MG TABLET PO SCH (09:27)
[2022-07-15] MEDS: CLOPIDOGREL BISULFATE 75 MG TABLET (FP) PO SCH (09:27)
[2022-07-15] MEDS: VALSARTAN 40 MG TABLET PO SCH (09:27)
[2022-07-15] MEDS: metoPROLOL SUCCINATE 25 MG TAB.SR.24H (FP) PO SCH (09:27)
[2022-07-15] MEDS: FLUTICASONE/UMECLIDIN/VILANTER(200-62.5-25 TRELEGY ELLIPTA) INAHLER IH SCH (09:28)
[2022-07-15] MEDS ORDERED: amLODIPine BESYLATE 5 MG TABLET (FP) PO SCH (10:00)
[2022-07-15] MEDS ORDERED: MAGNESIUM 1GM/D5W 100ML - 100 ML IVPB IVPB ONE (11:30)
[2022-07-15] MEDS: MUPIROCIN 2% TOPICAL OINTMENT 22 GM TUBE TP SCH ×2 (13:44→20:59)
[2022-07-15] MEDS: ATORVASTATIN CA 80 MG TABLET (FP) PO SCH (20:59)
[2022-07-16] MEDS: metFORMIN HCL 500 MG TABLET (FP) PO SCH (06:22)
[2022-07-16] MEDS: amLODIPine BESYLATE 5 MG TABLET (FP) PO SCH (09:37)
[2022-07-16] MEDS: APIXABAN 5 MG TABLET PO SCH (09:38)
[2022-07-16] MEDS: CLOPIDOGREL BISULFATE 75 MG TABLET (FP) PO SCH (09:38)
[2022-07-16] MEDS: PANTOPRAZOLE 40 MG TABLET PO SCH (09:38)
[2022-07-16] MEDS: VALSARTAN 40 MG TABLET PO SCH (09:38)
[2022-07-16] MEDS: metoPROLOL SUCCINATE 25 MG TAB.SR.24H (FP) PO SCH (09:40)
[2022-07-16] MEDS: FLUTICASONE/UMECLIDIN/VILANTER(200-62.5-25 TRELEGY ELLIPTA) INAHLER IH SCH (09:46)
[2022-07-16] MEDS: MUPIROCIN 2% TOPICAL OINTMENT 22 GM TUBE TP SCH (09:46)
[2022-07-16 10:49] VITALS: RESP 19
[2022-07-16 10:52] VITALS: BP 119/70; PULSE 91; TEMP 97.8
== END 2022-07-16 11:32 | disposition home or self-care (01) ==
LOC: JER 09:04 → JERBED 13:02 → UNDOADMOB 13:02 → JERBED 14:01 → INTOOBSV 14:32 → OBSVTOIN 14:32 → JERBED 14:47 → J4S 14:47 → JERBED 07-15 10:54 → J4S 07-15 10:54
PROVIDERS: ADMIT Family Medicine; ATTEND Family Medicine
PROC: 3E023NZ Introduction of Analgesics, Hypnotics, Sedatives into Muscle, Percutaneous Approach (ICD-10-PCS; principal; 2022-07-15)
PROC: 3E033GC Introduction of Other Therapeutic Substance into Peripheral Vein, Percutaneous Approach (ICD-10-PCS; 2022-07-15)
PROC: 3E0337Z Introduction of Electrolytic and Water Balance Substance into Peripheral Vein, Percutaneous Approach (ICD-10-PCS; 2022-07-15)
DX: R04.0 Epistaxis (principal); I25.10 Atherosclerotic heart disease of native coronary artery without angina pectoris; R55 Syncope and collapse; I11.9 Hypertensive heart disease without heart failure; I48.91 Unspecified atrial fibrillation; Z79.01 Long term (current) use of anticoagulants; I25.2 Old myocardial infarction; Z95.5 Presence of coronary angioplasty implant and graft; Z86.711 Personal history of pulmonary embolism; J45.909 Unspecified asthma, uncomplicated; E11.9 Type 2 diabetes mellitus without complications; E78.5 Hyperlipidemia, unspecified; R01.1 Cardiac murmur, unspecified; Z88.8 Allergy status to other drugs, medicaments and biological substances
CPT/HCPCS: 0241U-QW; 36415; 71045-TC-FY; 80053; 80061; 82962; 83036; 83735; 84443; 84484; 85025; 85610; 85730; 86850; 86900; 86901; 93005; 93010; 96372; 96374; 99285-25; G0378

== ENCOUNTER 2023-01-27 04:51 | Day surgery (SDC) | payer OTHER ==
[2023-01-26 10:55] VITALS: BMI 28.3
[2023-01-27] MEDS ORDERED: DEXAMETHASONE SOD PHOSPHATE 10 MG/1 ML VIAL ONE (07:14)
[2023-01-27] MEDS ORDERED: LIDOCAINE HCL/PF 2% SDV 5ML VIAL ONE (07:14)
[2023-01-27] MEDS ORDERED: LIDOCAINE HCL/PF 1% SDV 5ML VIAL ONE (07:14)
[2023-01-27] MEDS ORDERED: BUPIVACAINE HCL/PF 0.75% 10 ML VIAL ONE (07:14)
[2023-01-27] MEDS ORDERED: LIDOCAINE HCL/PF 2% SDV 5ML VIAL INF ONE (09:35)
[2023-01-27] MEDS ORDERED: LIDOCAINE HCL 1% PRESERVATIVE FREE - 30ML VIAL IJ ONE (09:35)
[2023-01-27] MEDS ORDERED: DEXAMETHASONE SOD PHOSPHATE 10 MG/1 ML VIAL IVPUSH ONE (09:35)
[2023-01-27] MEDS ORDERED: BUPIVACAINE HCL/PF 0.75% 10 ML VIAL NR ONE (09:35)
[2023-01-27] MEDS ORDERED: ACETAMINOPHEN 500 MG TABLET (FP) PO PRN (09:51)
[2023-01-27 10:13] VITALS: BP 112/72; PULSE 82; RESP 20; TEMP 98
== END 2023-01-27 10:21 | disposition home or self-care (01) ==
LOC: JASU-SURG 04:51
PROVIDERS: ATTEND Pain Medicine Pain Medicine
PROC: 015B3ZZ Destruction of Lumbar Nerve, Percutaneous Approach (ICD-10-PCS; principal; 2023-01-27 09:00)
DX: M47.816 Spondylosis without myelopathy or radiculopathy, lumbar region (principal)
CPT/HCPCS: 76000-TC-FY; J1100

== ENCOUNTER 2023-02-17 04:49 | Day surgery (SDC) | payer OTHER ==
[2023-02-15 11:24] VITALS: BMI 28.3
[2023-02-17 09:28] VITALS: TEMP 97.3
[2023-02-17 09:38] VITALS: RESP 20
[2023-02-17 10:03] VITALS: BP 129/83; PULSE 63
== END 2023-02-17 10:30 | disposition home or self-care (01) ==
LOC: JASU-ENDO 04:49
PROVIDERS: ATTEND Student in an Organized Health Care Education/Training Program
PROC: 0DBN8ZX Excision of Sigmoid Colon, Via Natural or Artificial Opening Endoscopic, Diagnostic (ICD-10-PCS; 2023-02-17)
PROC: 0DB68ZX Excision of Stomach, Via Natural or Artificial Opening Endoscopic, Diagnostic (ICD-10-PCS; 2023-02-17)
PROC: 0DB78ZX Excision of Stomach, Pylorus, Via Natural or Artificial Opening Endoscopic, Diagnostic (ICD-10-PCS; 2023-02-17)
PROC: 0DBK8ZX Excision of Ascending Colon, Via Natural or Artificial Opening Endoscopic, Diagnostic (ICD-10-PCS; principal; 2023-02-17 08:30)
DX: Z12.11 Encounter for screening for malignant neoplasm of colon (principal); D12.2 Benign neoplasm of ascending colon; D12.5 Benign neoplasm of sigmoid colon; K29.50 Unspecified chronic gastritis without bleeding; I10 Essential (primary) hypertension; E11.9 Type 2 diabetes mellitus without complications; Z79.84 Long term (current) use of oral hypoglycemic drugs
CPT/HCPCS: 82962; 88305-TC; 88342-TC

== ENCOUNTER 2023-02-21 04:15 | Day surgery (SDC) | payer OTHER ==
[2023-02-16 17:31] VITALS: BMI 28.3
[~2023-02-21 04:15] MED LIST changes: +BUPIVACAINE HCL/PF 0.75% 10 ML VIAL NR ONE; +DEXAMETHASONE SOD PHOSPHATE 10 MG/1 ML VIAL IVPUSH ONE; -LIDOCAINE 1% P/F 10 MG/ML VIAL INF ONE; +LIDOCAINE HCL 1% PRESERVATIVE FREE - 30ML VIAL IJ ONE; +LIDOCAINE HCL/PF 2% SDV 5ML VIAL INF ONE
[2023-02-21] MEDS ORDERED: BUPIVACAINE HCL/PF 0.75% 10 ML VIAL ONE (07:53)
[2023-02-21] MEDS ORDERED: LIDOCAINE HCL/PF 1% SDV 5ML VIAL ONE (07:53)
[2023-02-21] MEDS ORDERED: LIDOCAINE HCL/PF 2% SDV 5ML VIAL ONE (07:53)
[2023-02-21 08:04] VITALS: RESP 18
[2023-02-21] MEDS ORDERED: LIDOCAINE HCL 1% PRESERVATIVE FREE - 30ML VIAL IJ ONE (09:55)
[2023-02-21] MEDS ORDERED: LIDOCAINE HCL/PF 2% SDV 5ML VIAL INF ONE (10:03)
[2023-02-21] MEDS ORDERED: DEXAMETHASONE SOD PHOSPHATE 10 MG/1 ML VIAL ONE (10:07)
[2023-02-21] MEDS ORDERED: BUPIVACAINE HCL/PF 0.75% 10 ML VIAL NR ONE (10:10)
[2023-02-21] MEDS ORDERED: DEXAMETHASONE SOD PHOSPHATE 10 MG/1 ML VIAL IVPUSH ONE (10:10)
[2023-02-21 10:21] VITALS: BP 116/77; PULSE 80; TEMP 97.4
[2023-02-21] MEDS ORDERED: ACETAMINOPHEN 500 MG TABLET (FP) PO PRN (16:09)
== END 2023-02-21 10:35 | disposition home or self-care (01) ==
LOC: JASU-SURG 04:15
PROVIDERS: ATTEND Pain Medicine Pain Medicine
PROC: 015B3ZZ Destruction of Lumbar Nerve, Percutaneous Approach (ICD-10-PCS; principal; 2023-02-21 10:15)
DX: M47.816 Spondylosis without myelopathy or radiculopathy, lumbar region (principal)
CPT/HCPCS: 76000-TC-FY; J1100

== ENCOUNTER 2023-03-01 12:19 | Emergency (ER) | payer OTHER ==
[2023-03-01 12:31] VITALS: BP 110/64; PULSE 80; RESP 18; TEMP 98; BMI 28.3
== END 2023-03-01 13:55 | disposition home or self-care (01) ==
LOC: JER 12:19
DX: K62.5 Hemorrhage of anus and rectum (principal); K64.9 Unspecified hemorrhoids
CPT/HCPCS: 99283-25

== ENCOUNTER 2023-09-01 05:08 | Day surgery (SDC) | payer OTHER ==
[2023-08-30 15:27] VITALS: BMI 28.3
[2023-09-01] MEDS ORDERED: LIDOCAINE HCL/PF 1% SDV 5ML VIAL ONE (07:33)
[2023-09-01] MEDS ORDERED: ACETAMINOPHEN 500 MG TABLET (FP) PO PRN (13:09)
[2023-09-01] MEDS ORDERED: MIDAZOLAM HCL 2 MG/2 ML SINGLE DOSE VIAL ONE (13:40)
[2023-09-01] MEDS: LIDOCAINE HCL 1% PRESERVATIVE FREE - 30ML VIAL IJ ONE ×2 (13:44)
[2023-09-01] MEDS ORDERED: ONDANSETRON 4 MG/2 ML VIAL ONE (13:45)
[2023-09-01] MEDS ORDERED: ceFAZolin SODIUM 1 GM VIAL ONE (13:45)
[2023-09-01] MEDS ORDERED: LIDOCAINE HCL/PF 2% SDV 5ML VIAL ONE (13:47)
[2023-09-01] MEDS: LIDOCAINE HCL/PF 2% SDV 5ML VIAL INF ONE ×2 (14:00)
[2023-09-01 14:38] VITALS: BP 129/79; PULSE 82; RESP 18; TEMP 98.2
== END 2023-09-01 15:20 | disposition home or self-care (01) ==
LOC: JASU-SURG 05:08
PROVIDERS: ATTEND Pain Medicine Pain Medicine
PROC: 00HU3MZ Insertion of Neurostimulator Lead into Spinal Canal, Percutaneous Approach (ICD-10-PCS; principal; 2023-09-01 12:30)
DX: G89.4 Chronic pain syndrome (principal); E11.42 Type 2 diabetes mellitus with diabetic polyneuropathy; M54.50 Low back pain, unspecified
CPT/HCPCS: 63650; C1897; 76000-TC-FY; 82962; C1889